=== PATIENT | female | born 1995 ===

== ENCOUNTER → 2020-06-21 | Outpatient (CLI) | payer OTHER | END | disposition home or self-care (01) | LOC: PRENATAL 11:24 | PROVIDERS: ATTEND Obstetrics & Gynecology Maternal & Fetal Medicine | DX: O99.213 Obesity complicating pregnancy, third trimester (principal); O26.843 Uterine size-date discrepancy, third trimester; O40.3XX1 Polyhydramnios, third trimester, fetus 1; Z36.89 Encounter for other specified antenatal screening; Z3A.35 35 weeks gestation of pregnancy ==

== ENCOUNTER 2020-08-08 04:40 | Inpatient (IN) | payer OTHER ==
[~2020-08-08] VITALS: Ht 157.5 cm; Wt 3.2 kg
[2020-08-08] MEDS ORDERED: PRENATAL TABLE1 EAC1 PO (10:50)
== END 2020-08-11 08:50 | DRG 788 ==
LOC: LDR 04:40 → O/R 18:44 → OB/GYN 08-09 07:49
PROVIDERS: ADMIT Obstetrics & Gynecology; ATTEND Obstetrics & Gynecology
PROC: 4A1HXCZ Monitoring of Products of Conception, Cardiac Rate, External Approach (ICD-10-PCS; 2020-08-08)
PROC: 10D00Z1 Extraction of Products of Conception, Low, Open Approach (ICD-10-PCS; principal; 2020-08-08 17:00)
DX: O62.1 Secondary uterine inertia (principal); Z3A.40 40 weeks gestation of pregnancy; Z37.0 Single live birth; Z20.828 Contact with and (suspected) exposure to other viral communicable diseases